=== PATIENT | male | born 1940 | race Caucasian/White ===

== ENCOUNTER 2023-01-11 22:32 | Emergency (ER) | payer MEDICARE ==
[2023-01-11 23:37] LABS: Hemoglobin 14.1 g/dL (13.5-17.5); Mean Corpuscular Hemoglobin 31.3 pg (27.0-33.0); Mean Platelet Volume 9.4 fl (7.4-10.4); Platelet Count 136 10x3/uL (150-450); RBC Distribution Width 12.7 % (11.5-14.5); Red Blood Cell (RBC) Count 4.51 10x6/uL (4.32-5.72); White Blood Cell (WBC) Count 5.1 10x3/uL (3.5-10.5)
[2023-01-11 23:38] LABS: #Basophils 0.1 10x3/uL (0.0-0.2); #Eosinphils 0.2 10x3/uL (0.0-0.5); #Monocytes 0.6 10x3/uL (0.0-1.1); #Neutrophils 3.1 10x3/uL (1.5-8.4); %Eosinophils 4.1 % (0.0-6.0); %Lymphocytes 22.8 % (18.0-47.0); %Monocytes 10.8 % (0.0-10.0); %Neutrophils 61.1 % (40.0-75.0)
[2023-01-11 23:41] LABS: Anion Gap 13 mmol/L (10-20); BUN (Urea Nitrogen) 26 mg/dL (8.4-25.7); Calc. Creatinine Clearance 0 mL/min (70-130); Calcium 10.3 mg/dL (7.8-10.44); Carbon Dioxide 24 mmol/L (23-31); Chloride 108 mmol/L (98-107); Estimated GFR 64; Glucose 111 mg/dL (83-110); Potassium 4.3 mmol/L (3.5-5.1); Sodium 141 mmol/L (136-145)
== END 2023-01-12 00:24 | disposition home or self-care (01) ==
LOC: CSHERS 22:32
DX: I10 Essential (primary) hypertension (principal); K21.9 Gastro-esophageal reflux disease without esophagitis; E78.00 Pure hypercholesterolemia, unspecified; I25.2 Old myocardial infarction; Z87.891 Personal history of nicotine dependence; Z79.899 Other long term (current) drug therapy; Z79.82 Long term (current) use of aspirin
CPT/HCPCS: 36415; 80048; 84484; 85025; 93005; 99283

== ENCOUNTER 2025-05-10 11:36 | Emergency (ER) | payer MEDICARE, OTHER | END 2025-05-10 13:37 | disposition home or self-care (01) | LOC: CSHERS 11:36 | DX: L02.412 Cutaneous abscess of left axilla (principal); I25.2 Old myocardial infarction; I10 Essential (primary) hypertension; Z95.9 Presence of cardiac and vascular implant and graft, unspecified; Z87.891 Personal history of nicotine dependence | CPT/HCPCS: 87070; 87077; 87186; 87205; 99283 ==